=== PATIENT | male | born 1975 | race Caucasian/White ===

== ENCOUNTER → 2021-05-16 | Outpatient (CLI) | payer OTHER ==
[~2021-05-16] MED LIST: ALBUTEROL2.5 MG/3 M INH; CLARITIN10 MG PO; COMBIVENT0.074 GM/I INH; DULERA 200 MCG8.8 GM INH; FLEXERIL 10 MG10 MG PO; MONTELUKAST SOD10 MG PO; PREDNISONE 50 M50 MG PO; PREDNISONE10 MG PO; PREDNISONE20 MG PO; PRILOSEC OTC20 MG PO; SPIRIVA RESPIMAT4 GM INH; TORADOL 10 MG T10 MG PO; VENTOLIN HFA 66.7 GM INH; VIBRAMYCIN100 MG PO
== END ==
LOC: HEART 5 10:31
DX: Z00.00 Encounter for general adult medical examination without abnormal findings (principal); J01.90 Acute sinusitis, unspecified; J30.9 Allergic rhinitis, unspecified; J45.51 Severe persistent asthma with (acute) exacerbation; J20.9 Acute bronchitis, unspecified; M25.579 Pain in unspecified ankle and joints of unspecified foot; N40.0 Benign prostatic hyperplasia without lower urinary tract symptoms; Z79.52 Long term (current) use of systemic steroids; R94.2 Abnormal results of pulmonary function studies
CPT/HCPCS: 94060; 95012